=== PATIENT | female | born 1940 | race Caucasian/White ===

== ENCOUNTER → 2016-10-31 | Outpatient (CLI) | payer MEDICARE, OTHER | LOC: KOH-I 12:54 | DX: K59.00 Constipation, unspecified (principal) | CPT/HCPCS: 74000 ==

== ENCOUNTER 2017-01-07 17:59 | Emergency (ER) | payer MEDICARE, OTHER | END 2017-01-07 21:38 | disposition home or self-care (01) | LOC: ER1 17:59 | DX: R79.1 Abnormal coagulation profile (principal); J45.909 Unspecified asthma, uncomplicated; Z88.0 Allergy status to penicillin; Z95.2 Presence of prosthetic heart valve; Z79.899 Other long term (current) drug therapy; Z51.81 Encounter for therapeutic drug level monitoring; I05.9 Rheumatic mitral valve disease, unspecified; I48.91 Unspecified atrial fibrillation; Z79.01 Long term (current) use of anticoagulants | CPT/HCPCS: 36415; 85610; 96372; 99283; J1650 ==

== ENCOUNTER → 2017-01-08 | Outpatient (CLI) | payer MEDICARE, OTHER ==
[~2017-01-08] VITALS: Ht 156.2 cm; Wt 68.0 kg
== END ==
LOC: OPSV 12:00
DX: Z51.81 Encounter for therapeutic drug level monitoring (principal); I05.9 Rheumatic mitral valve disease, unspecified; I48.91 Unspecified atrial fibrillation; Z95.2 Presence of prosthetic heart valve; Z79.01 Long term (current) use of anticoagulants
CPT/HCPCS: 96372; J1650

== ENCOUNTER → 2022-02-21 | Outpatient (CLI) | payer MEDICARE, OTHER ==
[~2022-02-21] MED LIST: ALL DAY ALLERGY10 M2 PO; AMLODIPINE BESY10 MG PO; BACLOFEN10 MG PO; CYMBALTA 30 MG30 MG PO; DIGOX125 MCG PO; FEBUXOSTAT40 MG PO; FOLIC ACID 1 MG1 MG PO; LISINOPRIL5 MG PO; WARFARIN SODIUM3 MG PO
== END ==
LOC: HEART 5 09:00
DX: I50.9 Heart failure, unspecified (principal); I27.20 Pulmonary hypertension, unspecified; Z95.2 Presence of prosthetic heart valve; I08.3 Combined rheumatic disorders of mitral, aortic and tricuspid valves
CPT/HCPCS: 93306